=== PATIENT | female | born 1985 | race Caucasian/White ===

== ENCOUNTER 2020-12-22 12:51 | Emergency (ER) | payer OTHER ==
[2020-12-22] MEDS ORDERED: SODIUM CHLORIDE 0.9% 1,000 ML IV ONE (13:53)
[2020-12-22] MEDS ORDERED: ACETAMINOPHEN TAB 500 MG TAB PO STA (13:53)
--- NOTE | 2020-12-22 13:57 | ED ---
Female Urogenital HPI - General Chief complaint: Urogenital Stated complaint: 6wks preg, bleeding Time Seen by Provider: 12/22/20 13:05 Source: patient Mode of arrival: ambulatory Limitations: no limitations - History of Present Illness Initial comments: Patient is a 35-year-old female with no significant past medical history presents to department complaining of a 2 to three-day history of worsening vaginal bleeding in the setting of . Patient is approximately 6 weeks by LMP. She states she has been having vaginal spotting for one day and sought care in [facility] yesterday. They ultrasounded her and saw that she believes was a definitive IUP, and was instructed to follow-up and return to emergency department if there is worse bleeding. She states she went home and overnight and this morning she noticed an increased level of bleeding with clots. She has noticed that she has gone through 2 pads today versus just spo tting yesterday. She endorses typical menstrual cycle abdominal cramping at this time. She denies any other vaginal discharge or urinary complaints. She has been previously, and that was complicated by preeclampsia. She delivered via section. She otherwise has no acute complaints at this time. She states she does not recall any of the blood work at the outside hospital. She has followed up with her AUXILIARY ENGINEER on this and has been taking vitamins. Her AUXILIARY ENGINEER is Dr. Naqvi. She was instructed that she is having a threatened miscarriage and returns to the emergency department today to be evaluated due to worsening bleeding and clots passing. She denies any chest pain, shortness breath, abdominal pain other than the cramping, nausea, vomiting. She started feeling tight. Denies any emesis or diarrhea. She has any headache, weakness, chills. She denies any fatigue. She has any blurry vision. She has no other acute complaints at this time. - Related Data Allergies Allergy/AdvReac Type Severity Reaction Status Date / Time No Known Allergies Allergy Verified 12/22/20 12:54 Review of Systems ROS Statement: Those systems with pertinent positive or pertinent negative responses have been documented in the HPI. Review of Systems: CONST: Denies fever EYES: Denies blurry vision ENT: Denies nasal congestion C/V: Denies Chest pain RESP: Denies shortness of breath GI: Denies abdominal pain : Endorses vaginal bleeding SKIN: Denies rash. MSK: Denies joint pain. NEURO: Denies headache ROS Other: All systems not noted in ROS Statement are negative. Past Medical History Past Medical History: No Reported History Additional Past Medical History / Comment(s): Preeclampsia during prior History of Any Multi-Drug Resistant Organisms: None Reported Past Surgical History: Section Past Psychological History: No Psychological Hx Reported Smoking Status: Former smoker Past Alcohol Use History: None Reported Past Drug Use History: None Reported General Exam - General Exam Comments Initial Comments: Constitutional: Blood pressure was 121/82, pulse was 108, respirations were 16, pulse oximetry was 100%, temperature was 97.5. General: Appears in no acute distress. HEAD: Normal with no signs of head trauma. EYES: PERRLA, EOMI, conjunctiva normal, no discharge. conjunctival pallor ENT: Hearing grossly intact, normal oropharynx. RESPIRATORY: Clear breath sounds bilaterally. No wheezes, rales, or rhonchi. C/V: Regular rate and rhythm. S1 and S2 auscultated, no edema, peripheral pulses 2+ and intact throughout ABD: Abdomen soft, nontender, nondistended. EXT: Normal range of motion, no obvious deformity SKIN: No rashes or lesions observed on exposed skin. NEURO: Alert and oriented 4. Limitations: no limitations Course Vital Signs 12/22/20 12/22/20 12/22/20 12:54 14:55 15:54 Temperature 97.5 F L 97.3 F L 98.2 F Pulse Rate 108 H 86 83 Respiratory 16 18 18 Rate Blood Pressure 121/82 103/66 108/68 O2 Sat by Pulse 100 99 100 Oximetry Medical Decision Making - Medical Decision Making Based on the patient's presentation and physical exam, it does appear that she is having a threatened miscarriage versus completed miscarriage. I did obtain a point of care bedside ultrasound which was inconclusive. As the patient did not present this hospital yesterday and we have no prior laboratory studies or imaging, I did recommend that we obtain basic laboratory studies including type and screen, CBC, urinalysis. We also obtained a quantitative beta hCG. Patient was in agreement with this plan. We will obtain a transvaginal as well as a transabdominal informal ultrasound with radiology to evaluate for definitive IUP, which per patient was seen yesterday at outside hospital. The patient was in agreement with this plan. She'll be given 1 L fluid bolus as well as Tylenol for pain management. Patient studies are remarkable for an elevated beta hCG 3000s. Patient's urinalysis does not show any signs of infection and is likely contaminated catch. Urine bacteria are not present. Remainder of the laboratory studies are unremarkable. Patient's imaging revealed a gestational sac in the uterus that measures out of [place] too early that could represent an early but other etiologies are not excluded at this time. The recommend serial beta hCGs and repeat imaging is necessary. On reevaluation, patient is feeling somewhat improved. I did discuss the results with her and informed her that it still appears that she is having a threatened miscarriage. She expressed understanding of this. I did recommend that she follow up with her AUXILIARY ENGINEER or return to this hospital to obtain serial beta hCGs if her symptoms continue. I told her to monitor for worsening bleeding. She is not anemic at this time. She has no acute complaints otherwise.I believe it is safe for her to be discharged home at this time. She was in agreement with the plan. Patient does have vitamins at home and does not require prescription. I instructed the patient to follow up with their PCP in the next 3 days. I provided contact information for follow up with the on-call AUXILIARY ENGINEER. Patient already has contact information for her own AUXILIARY ENGINEER.. I explained that the patient should return to the emergency department if they experience any worsening symptoms. Strict return precautions were discussed with the patient. The patient expressed understanding of these instructions. I answered all que stions that the patient had. The patient was discharged home in improved condition with their prescriptions and follow up information. - Lab Data Result diagrams: 12/22/20 13:44 Lab Results 12/22/20 12/22/20 12/22/20 Range/Units 13:44 13:44 13:44 WBC 8.3 (3.8-10.6) k/uL RBC 4.67 (3.80-5.40) m/uL Hgb 14.7 (11.4-16.0) gm/dL Hct 42.4 (34.0-46.0) % MCV 90.8 (80.0-100.0) fL MCH 31.6 (25.0-35.0) pg MCHC 34.7 (31.0-37.0) g/dL RDW 11.8 (11.5-15.5) % Plt Count 218 (150-450) k/uL MPV 7.1 Neutrophils % 76 % Lymphocytes % 16 % Monocytes % 3 % Eosinophils % 3 % Basophils % 0 % Neutrophils # 6.3 (1.3-7.7) k/uL Lymphocytes # 1.4 (1.0-4.8) k/uL Monocytes # 0.3 (0-1.0) k/uL Eosinophils # 0.2 (0-0.7) k/uL Basophils # 0.0 (0-0.2) k/uL HCG, Quant mIU/mL Urine Color Light Yellow Urine Appearance Clear (Clear) Urine pH 7.0 (5.0-8.0) Ur Specific [place] 1.007 (1.001-1.035) Urine Protein Negative (Negative) Urine Glucose (UA) Negative (Negative) Urine Ketones Negative (Negative) Urine Blood Large H (Negative) Urine Nitrite Negative (Negative) Urine Bilirubin Negative (Negative) Urine Urobilinogen <2.0 (<2.0) mg/dL Ur Leukocyte Esterase Small H (Negative) Urine RBC 1 (0-5) /hpf Urine WBC 5 (0-5) /hpf Ur Squamous Epith Cells 3 (0-4) /hpf Urine Mucus Rare H (None) /hpf Urine HCG, Qual Detected (Not Detectd) Blood Type Blood Type Recheck Bld Type Recheck Status Antibody Screen Spec Expiration Date 12/22/20 12/22/20 Range/Units 13:44 15:13 WBC (3.8-10.6) k/uL RBC (3.80-5.40) m/uL Hgb (11.4-16.0) gm/dL Hct (34.0-46.0) % MCV (80.0-100.0) fL MCH (25.0-35.0) pg MCHC (31.0-37.0) g/dL RDW (11.5-15.5) % Plt Count (150-450) k/uL MPV Neutrophils % % Lymphocytes % % Monocytes % % Eosinophils % % Basophils % % Neutrophils # (1.3-7.7) k/uL Lymphocytes # (1.0-4.8) k/uL Monocytes # (0-1.0) k/uL Eosinophils # (0-0.7) k/uL Basophils # (0-0.2) k/uL HCG, Quant 3445.1 mIU/mL Urine Color Urine Appearance (Clear) Urine pH (5.0-8.0) Ur Specific [place] (1.001-1.035) Urine Protein (Negative) Urine Glucose (UA) (Negative) Urine Ketones (Negative) Urine Blood (Negative) Urine Nitrite (Negative) Urine Bilirubin (Negative) Urine Urobilinogen (<2.0) mg/dL Ur Leukocyte Esterase (Negative) Urine RBC (0-5) /hpf Urine WBC (0-5) /hpf Ur Squamous Epith Cells (0-4) /hpf Urine Mucus (None) /hpf Urine HCG, Qual (Not Detectd) Blood Type B Positive Blood Type Recheck No Previous Record Bld Type Recheck Status CABO Indicated Antibody Screen NEGATIVE Spec Expiration Date 12/25/20202343 Disposition Clinical Impression: Threatened in early Disposition: HOME SELF-CARE Is patient prescribed a controlled substance at d/c from ED?: No Referrals: None,Stated [Primary Care Provider] - 1-2 days Billy Christianson MD [STAFF PHYSICIAN] - 1-2 days
[2020-12-22 14:07] LABS: Basophils % (A) 0 %; Eosinophils # (A) 0.2 k/uL (0-0.7); Eosinophils % (A) 3 %; HCT 42.4 % (34.0-46.0); HGB 14.7 gm/dL (11.4-16.0); Lymphocytes # (A) 1.4 k/uL (1.0-4.8); Lymphocytes % (A) 16 %; MCH 31.6 pg (25.0-35.0); MCHC 34.7 g/dL (31.0-37.0); MCV 90.8 fL (80.0-100.0); Mean Platelet Volume 7.1; Monocytes # (A) 0.3 k/uL (0-1.0); Monocytes % (A) 3 %; Neutrophils # (A) 6.3 k/uL (1.3-7.7); Neutrophils % (A) 76 %; Platelet Count 218 k/uL (150-450); RBC 4.67 m/uL (3.80-5.40); RDW 11.8 % (11.5-15.5); WBC 8.3 k/uL (3.8-10.6)
[2020-12-22 14:29] LABS: Appearance,Urine Clear (Clear); Bilirubin,Urine Negative (Negative); Blood,Urine Large (Negative); Color,Urine Light Yellow; Glucose,Urine (UA) Negative (Negative); Ketones,Urine Negative (Negative); Leukocyte Esterase,Urine Small (Negative); Mucus,Urine Rare /hpf; Nitrite,Urine Negative (Negative); Protein,Urine Negative (Negative); RBC,Urine 1 /hpf (0-5); Specific Gravity,Urine 1.007 (1.001-1.035); Squamous Epithelial Cell,Urine 3 /hpf (0-4); Urobilinogen,Urine <2.0 mg/dL (<2.0); WBC,Urine 5 /hpf (0-5)
--- NOTE | 2020-12-22 14:41 | US ---
EXAMINATION TYPE: Transabdominal DATE OF EXAM: 12/22/2020 2:27 PM COMPARISON: NONE CLINICAL HISTORY: , concern for threatened miscarriage. EXAM PERFORMED: Transvaginal (TV) and Transabdominal (TA) EXAM MEASUREMENTS: GESTATIONAL AGE / DATING Physician Established: Not yet established Dates by LMP: 11/05/2020 (6 weeks/5 days) EDC: 08/12/2021 Dates by First Scan: No previous this is first scan Dates by Current Scan for: Unable to date by today's study MATERNAL ANATOMY Uterus: 6.7 x 3.2 x 4.9 cm Right Ovary: 3.7 x 1.8 x 3.0 cm Left Ovary: 2.4 x 1.3 x 1.9 cm Post CDS / Adnexa: extensive peristalsing bowel noted Presence of free fluid: small amount adjacent to right ovary GESTATION / SURVEY MSD: 0.7 cm (measures out of range or too early IUP: No IUP seen at this time Date of LMP: 11/05/2020 Beta HcG (if available): not available at time of exam Gestational sac seen in uterus that measures out of range or too early. Could represent early pregnan cy, other etiologies not excluded at this time. Recommend serial beta HcG. IMPRESSION: Gestational sac seen in uterus that measures out of range or too early. Could represent early pregnan cy, other etiologies not excluded at this time. Recommend serial beta HcG and repeat imaging, as nece gwynry.
[2020-12-22 14:58] VITALS: RESP 18
[2020-12-22 15:55] VITALS: BP 108/68; PULSE 83; TEMP 98.2
== END 2020-12-22 15:54 | disposition home or self-care (01) ==
LOC: EC 12:51
DX: O20.0 Threatened abortion (principal); Z3A.01 Less than 8 weeks gestation of pregnancy; Z87.891 Personal history of nicotine dependence
CPT/HCPCS: 36415; 76801; 76817; 81001; 81025; 84702; 85025; 86850; 86900; 86901; 96360; 99284